=== PATIENT | female | born 1995 | race American Indian/Alaskan Native ===

== ENCOUNTER 2017-04-22 16:51 | Emergency (ER) | payer SELFPAY ==
[2017-04-22 18:51] LABS: Basophils % (Auto) 0.7 % (0.0-1.8); Eosinophils % (Auto) 1.4 % (0.0-4.3); Hematocrit 37.9 % (30.3-42.9); Hemoglobin 12.1 gm/dl (10.1-14.3); Mean Corpuscular HGB Conc 32 % (30-34); Mean Corpuscular Hemoglobin 27 pg (28-32); Mean Corpuscular Volume 84 fl (79-97); Platelet Count 269 K/mm3 (140-440); Red Blood Count 4.54 M/mm3 (3.65-5.03); Red Cell Distribution Width 14.2 % (13.2-15.2); White Blood Count 6.9 K/mm3 (4.5-11.0)
[2017-04-22 19:01] LABS: Bilirubin,Urine NEG (Negative); Blood,Urine NEG (Negative); Ketones,Urine NEG (Negative); Leukocyte Esterase,Urine NEG (Negative); Mucus,Urine FEW /HPF; Nitrite,Urine NEG (Negative); Protein,Urine <15 mg/dL mg/dL (Negative); Urobilinogen,Urine < 2.0 mg/dL (<2.0)
[2017-04-22 19:14] LABS: Anion Gap 17 mmol/L; BUN/Creatinine Ratio 10; Blood Urea Nitrogen 6 mg/dL (7-17); Calcium 9.3 mg/dL (8.4-10.2); Carbon Dioxide 27 mmol/L (22-30); Chloride 98.8 mmol/L (98-107); Glucose 118 mg/dL (65-100); Potassium 3.9 mmol/L (3.6-5.0); Sodium 139 mmol/L (137-145)
[2017-04-22] MEDS ORDERED: D5/0.45NS 1,000 ML IV SCH (23:45)
[2017-04-22] MEDS ORDERED: REGLAN IV ONE (23:55)
[2017-04-22] MEDS ORDERED: CARAFATE PO ONE (23:55)
[2017-04-22] MEDS ORDERED: PEPCID IV ONE (23:55)
--- NOTE | 2017-04-22 23:56 | Emergency Department Report ---
ED General Adult HPI - General Chief complaint: Nausea/Vomiting/Diarrhea Stated complaint: ABDOMINAL PAIN/VOMITING Time Seen by Provider: 04/22/17 23:37 Source: patient, RN notes reviewed Mode of arrival: Ambulatory Limitations: No Limitations - History of Present Illness Initial comments: This is a 21-year-old female who is previously unknown to this provider. Patient presents to the ER with epigastric abdominal cramping, nausea and vomiting, generalized weakness. Her symptoms started 2 days ago. She is not having lower abdominal pain. She denies irritative and obstructive urinary symptoms and vaginal bleeding. She reports her first 3 rounds of emesis were clear and yellow, she's had a few episodes of emesis that have been tinged with blood. There is no bright red blood per rectum. She also describes a headache that is associated with vomiting. The headache is throbbing on the left side. It is not sudden or thunderclap in nature. It did not reach maximal intensity within an hour. It is not similar thunderclap. Patient isn't sure if she is . Her symptoms do not have exacerbating or relieving factors and I do not radiate anywhere. -: Gradual, days(s) Location: head, abdomen Radiation: non-radiation Quality: other (cramping) Consistency: intermittent Improves with: none Worsens with: none Associated Symptoms: headaches, loss of appetite, nausea/vomiting - Related Data Previous Rx's Medication Instructions Recorded Last Taken Type Famotidine [Pepcid] 20 mg PO QDAY #20 tablet 04/23/17 Unknown Rx Ondansetron [Zofran Odt] 4 mg PO Q8HR PRN #20 tab.rapdis 04/23/17 Unknown Rx Allergies Allergy/AdvReac Type Severity Reaction Status Date / Time No Known Allergies Allergy Unverified 04/22/17 18:24 ED Review of Systems ROS: Stated complaint: ABDOMINAL PAIN/VOMITING Other details as noted in HPI Constitutional: denies: fever Eyes: denies: eye discharge ENT: denies: epistaxis Respiratory: denies: cough Cardiovascular: denies: chest pain Gastrointestinal: abdominal pain, nausea, vomiting Genitourinary: denies: dysuria Neurological: headache ED Past Medical Hx - Past Medical History Previous Medical History?: No - Surgical History Past Surgical History?: No - Social History Smoking Status: Former Smoker Substance Use Type: None - Medications Home Medications: Home Medications Medication Instructions Recorded Confirmed Last Taken Type Famotidine [Pepcid] 20 mg PO QDAY #20 tablet 04/23/17 Unknown Rx Ondansetron [Zofran Odt] 4 mg PO Q8HR PRN #20 tab.rapdis 04/23/17 Unknown Rx ED Physical Exam - General Limitations: No Limitations General appearance: alert, in no apparent distress - Head Head exam: Present: atraumatic, normocephalic - Eye Eye exam: Present: normal appearance, EOMI. Absent: nystagmus - ENT ENT exam: Present: normal exam, normal orophraynx, mucous membranes moist, normal external ear exam - Neck Neck exam: Present: normal inspection, full ROM. Absent: tenderness, meningismus - Respiratory Respiratory exam: Present: normal lung sounds bilaterally. Absent: respiratory distress - Cardiovascular Cardiovascular Exam: Present: regular rate, normal rhythm, normal heart sounds. Absent: systolic murmur, diastolic murmur, rubs, gallop - GI/Abdominal GI/Abdominal exam: Present: soft, normal bowel sounds. Absent: distended, tenderness, guarding, rebound, rigid, pulsatile mass - Extremities Exam Extremities exam: Present: normal inspection, full ROM, normal capillary refill. Absent: calf tenderness - Back Exam Back exam: Present: normal inspection, full ROM. Absent: tenderness, CVA tenderness (R), paraspinal tenderness, vertebral tenderness - Neurological Exam Neurological exam: Present: alert, oriented X3, normal gait, other (Extraocular movements intact. Tongue midline. No facial droop. Facial sensation intact to light touch in the V1, V2, V3 distribution bilaterally. 5 and 5 strength in 4 extremities.. Sensation is intact to light touch in 4 extremities.). Absent : motor sensory deficit - Psychiatric Psychiatric exam: Present: normal affect, normal mood - Skin Skin exam: Present: warm, dry, intact, normal color. Absent: rash ED Course Vital Signs 04/22/17 04/22/17 04/23/17 18:19 23:06 01:28 Temperature 98.4 F Pulse Rate 78 72 Respiratory 18 18 18 Rate Blood Pressure 104/61 Blood Pressure 110/60 [Right] O2 Sat by Pulse 100 100 Oximetry - Reevaluation(s) Reevaluation #1: 04/23/17 00:48 Differential diagnosis, including but not limited to: Hyperemesis, nausea and vomiting of , GERD/gastritis, migraine headache, tension headache, cluster headache Assessment and plan: 21-year-old female with a positive urine test and endorsement of nausea and vomiting, some blood-tinged emesis, may be a component of Aggie-Epperson tear. On her initial evaluation, she is sleeping and not actively vomiting, and is in no distress and her stretcher. During her history and physical, she speaks in full sentences. There is no abdominal tenderness. Transvaginal ultrasound was obtained given positive urine test, however it was most likely a false positive, as are serum prior to test came back negative. Patient was treated with IV nausea medication and nonnarcotic pain medication, x-ray of the chest will also be obtained. Reevaluation #2: 04/23/17 01:31 Vital signs remain stable. Patient tolerated liquid feeds. As expected, ultrasound demonstrates no intrauterine , although with a negative serum quantitative hCG, I would expect that. Patient is suitable for discharge at this time, return precautions are reviewed. At the time of reassessment, the patient was sleeping comfortably in her stretcher with no active vomiting, and her abdomen was soft on repeat examination. 04/23/17 01:34 ED Medical Decision Making - Lab Data Result diagrams: 04/22/17 18:29 04/22/17 18:29 Vital Signs 04/22/17 04/22/17 18:19 23:06 Temperature 98.4 F Pulse Rate 78 Respiratory 18 18 Rate Blood Pressure 104/61 O2 Sat by Pulse 100 Oximetry Lab Results 04/22/17 04/22/17 04/22/17 Range/Units 18:28 18:29 18:29 WBC 6.9 (4.5-11.0) K/mm3 RBC 4.54 (3.65-5.03) M/mm3 Hgb 12.1 (10.1-14.3) gm/dl Hct 37.9 (30.3-42.9) % MCV 84 (79-97) fl MCH 27 L (28-32) pg MCHC 32 (30-34) % RDW 14.2 (13.2-15.2) % Plt Count 269 (140-440) K/mm3 Lymph % (Auto) 20.5 (13.4-35.0) % Turner % (Auto) 9.4 H (0.0-7.3) % Eos % (Auto) 1.4 (0.0-4.3) % Baso % (Auto) 0.7 (0.0-1.8) % Lymph # 1.4 (1.2-5.4) K/mm3 Turner # 0.6 (0.0-0.8) K/mm3 Eos # 0.1 (0.0-0.4) K/mm3 Baso # 0.0 (0.0-0.1) K/mm3 Seg Neutrophils % 68.0 (40.0-70.0) % Seg Neutrophils # 4.7 (1.8-7.7) K/mm3 Sodium 139 (137-145) mmol/L Potassium 3.9 (3.6-5.0) mmol/L Chloride 98.8 (98-107) mmol/L Carbon Dioxide 27 (22-30) mmol/L Anion Gap 17 mmol/L BUN 6 L (7-17) mg/dL Creatinine 0.6 L (0.7-1.2) mg/dL Estimated GFR > 60 ml/min BUN/Creatinine Ratio 10 % Glucose 118 H (65-100) mg/dL Calcium 9.3 (8.4-10.2) mg/dL HCG, Quant (0-4) mIU/mL Urine Color Straw (Yellow) Urine Turbidity Clear (Clear) Urine pH 8.0 H (5.0-7.0) Ur Specific [place] 1.011 (1.003-1.030) Urine Protein <15 mg/dl (Negative) mg/dL Urine Glucose (UA) Neg (Negative) mg/dL Urine Ketones Neg (Negative) mg/dL Urine Blood Neg (Negative) Urine Nitrite Neg (Negative) Urine Bilirubin Neg (Negative) Urine Urobilinogen < 2.0 (<2.0) mg/dL Ur Leukocyte Esterase Neg (Negative) Urine WBC (Auto) 1.0 (0.0-6.0) /HPF Urine RBC (Auto) 1.0 (0.0-6.0) /HPF U Epithel Cells (Auto) 1.0 (0-13.0) /HPF Urine Mucus Few /HPF Urine HCG, Qual Positive A (Negative) Blood Type Antibody Screen 04/22/17 04/22/17 Range/Units 23:44 23:49 WBC (4.5-11.0) K/mm3 RBC (3.65-5.03) M/mm3 Hgb (10.1-14.3) gm/dl Hct (30.3-42.9) % MCV (79-97) fl MCH (28-32) pg MCHC (30-34) % RDW (13.2-15.2) % Plt Count (140-440) K/mm3 Lymph % (Auto) (13.4-35.0) % Turner % (Auto) (0.0-7.3) % Eos % (Auto) (0.0-4.3) % Baso % (Auto) (0.0-1.8) % Lymph # (1.2-5.4) K/mm3 Turner # (0.0-0.8) K/mm3 Eos # (0.0-0.4) K/mm3 Baso # (0.0-0.1) K/mm3 Seg Neutrophils % (40.0-70.0) % Seg Neutrophils # (1.8-7.7) K/mm3 Sodium (137-145) mmol/L Potassium (3.6-5.0) mmol/L Chloride (98-107) mmol/L Carbon Dioxide (22-30) mmol/L Anion Gap mmol/L BUN (7-17) mg/dL Creatinine (0.7-1.2) mg/dL Estimated GFR ml/min BUN/Creatinine Ratio % Glucose (65-100) mg/dL Calcium (8.4-10.2) mg/dL HCG, Quant < 2 (0-4) mIU/mL Urine Color (Yellow) Urine Turbidity (Clear) Urine pH (5.0-7.0) Ur Specific [place] (1.003-1.030) Urine Protein (Negative) mg/dL Urine Glucose (UA) (Negative) mg/dL Urine Ketones (Negative) mg/dL Urine Blood (Negative) Urine Nitrite (Negative) Urine Bilirubin (Negative) Urine Urobilinogen (<2.0) mg/dL Ur Leukocyte Esterase (Negative) Urine WBC (Auto) (0.0-6.0) /HPF Urine RBC (Auto) (0.0-6.0) /HPF U Epithel Cells (Auto) (0-13.0) /HPF Urine Mucus /HPF Urine HCG, Qual (Negative) Blood Type A POSITIVE Antibody Screen Negative - Radiology Data Radiology results: pending, report reviewed, image reviewed interpreted by me: X-ray the chest is negative for acute disease Critical care attestation.: If time is entered above; I have spent that time in minutes in the direct care of this critically ill patient, excluding procedure time. ED Disposition Clinical Impression: History of nausea and vomiting Disposition: TO HOME OR SELFCARE Is pt being admited?: No Does the pt Need Aspirin: No Condition: Stable Instructions: Acute Nausea and Vomiting (ED) Additional Instructions: Take the pain medication and nausea medication as directed. Avoid consumption of heavy and spicy foods. Follow up with a primary care doctor within the next week. Return to the ER right away with new pain, worsened pain, migration of pain, fevers, chills, lethargy, irritability, projectile vomiting, change in mental status, inability to tolerate liquid feeds. Prescriptions: Famotidine [Pepcid] 20 mg PO QDAY #20 tablet Ondansetron [Zofran Odt] 4 mg PO Q8HR PRN #20 tab.rapdis PRN Reason: Nausea Referrals: PRIMARY CAREMD [Primary Care Provider] - 3-5 Days CHRISTIANO CRYSTAL MD [Staff Physician] - 3-5 Days [facility] [Provider Group] - 3-5 Days Forms: Work/School Release Form(ED)
[2017-04-23] MEDS ORDERED: BENTYL PO ONE (00:42)
[2017-04-23] MEDS ORDERED: CARAFATE PO ONE (00:42)
[2017-04-23] MEDS ORDERED: PEPCID PO ONE (00:42)
[2017-04-23] MEDS ORDERED: ZOFRAN ORAL LIQ PO ONE (00:42)
[2017-04-23] MEDS ORDERED: ALUM-MAG HYDROX-SIMETH 200-200-20MG/5ML PO ONE (00:42)
[2017-04-23] MEDS ORDERED: REGLAN IV ONE (00:45)
[2017-04-23] MEDS ORDERED: PEPCID IV ONE (00:45)
--- NOTE | 2017-04-23 01:10 | Ultrasound Report ---
FINAL REPORT EXAM: US OB TRANSVAGINAL HISTORY: pregnancty n/v COMPARISON: None available. TECHNIQUE: Several real-time grayscale and color Doppler images were obtained. Transabdominal and transvaginal exam. FINDINGS: The endometrial stripe measures 3-4 millimeters. No IUP or adnexal masses are demonstrated. Uterus measures 6.3 x 2.7 x 3.3 centimeters. Right ovary measures 3.1 x 2.4 x 3.0 centimeters. Left ovary measures 3.7 x 2.6 x 2.7 centimeters. Follicles are present within the ovaries. There is gross vascular flow to the ovaries. IMPRESSION: No IUP or adnexal masses are demonstrated. Correlation with serial beta HCGs and followup exam is suggested. Normal physiologic changes of the ovaries.
--- NOTE | 2017-04-23 01:14 | Ultrasound Report ---
FINAL REPORT PROCEDURE: US OB < = 14 WEEKS FETUS TECHNIQUE: Real-time transabdominal sonography of the uterus, placenta, amniotic fluid, adnexa, and fetus was performed with image documentation. Measurements were obtained to determine age/size. M-mode Doppler was used to document heartbeat. CPT 25735 HISTORY: pregnancty n/v COMPARISON: No prior studies are available for comparison. FINDINGS: No intrauterine or ectopic is identified. The uterus measures 6.3 x 2.7 x 3.3 centimeters. Endometrium measures 3.6 millimeters in thickness. There is no endometrial fluid. The right ovary measures 3.1 x 2.4 x 3 centimeters. Left ovary measures 3.7 x 2.6 x 2.7 centimeters. There is no ovarian torsion or mass. There is no free pelvic fluid. IMPRESSION: Normal uterus and ovaries. No intrauterine or ectopic is identified.
[2017-04-23 01:29] VITALS: BP 110/60
--- NOTE | 2017-04-23 03:14 | XRay Report ---
FINAL REPORT PROCEDURE: XR CHEST ROUTINE 2V TECHNIQUE: PA and lateral chest radiographs were obtained. CPT 70929 HISTORY: n/v threw up blood COMPARISON: No prior studies are available for comparison. FINDINGS: Heart: Normal. Mediastinum/Vessels: Normal. Lungs/Pleural space: Normal. Bony thorax: No acute osseous abnormality. Other: IMPRESSION: Normal examination.
== END 2017-04-23 02:06 | disposition home or self-care (01) ==
LOC: ED 16:51
DX: R10.13 Epigastric pain (principal); R11.2 Nausea with vomiting, unspecified; R53.1 Weakness; R51 Headache; Z87.891 Personal history of nicotine dependence
CPT/HCPCS: 36415; 71020; 76801; 76817; 80048; 81001; 81025; 84702; 85025; 86850; 86900; 86901; 96374; 96375; 99285; J2765

== ENCOUNTER 2021-10-19 18:09 | Emergency (ER) | payer SELFPAY ==
[2021-10-20] MEDS ORDERED: IBUPROFEN 600 MG TAB PO ONE (03:47)
[2021-10-20] MEDS ORDERED: ACETAMINOPHEN 500 MG TAB PO ONE (03:47)
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
[2021-10-20 06:54] VITALS: BP 108/68
== END 2021-10-20 06:52 | disposition home or self-care (01) ==
LOC: ED 18:09
DX: S29.012A Strain of muscle and tendon of back wall of thorax, initial encounter (principal); M62.830 Muscle spasm of back; M54.2 Cervicalgia; R51.9 Headache, unspecified; Z87.891 Personal history of nicotine dependence; V89.2XXA Person injured in unspecified motor-vehicle accident, traffic, initial encounter; Y93.89 Activity, other specified; Y92.488 Other paved roadways as the place of occurrence of the external cause; Y99.8 Other external cause status
CPT/HCPCS: 72070; 72125; 99284